=== PATIENT | male | born 2000 | race Two or more races ===

== ENCOUNTER 2020-06-22 15:26 | Emergency (ER) | payer MEDICAID, OTHER ==
--- NOTE | 2020-06-22 16:06 | EDM.PDOC ---
ED HPI GENERAL MEDICAL PROBLEM - General Chief Complaint: Allergic Reaction Stated Complaint: ALLERGIC REACTION Time Seen by Provider: 06/22/20 15:40 Source of Information: Reports: Patient History Limitations: Reports: No Limitations - History of Present Illness INITIAL COMMENTS - FREE TEXT/NARRATIVE: 19-year-old male with no past medical history presenting with insect bites. States he was outdoors and was bitten by numerous mosquitoes over the past 24 hours. Presents to the ED complaining of multiple itchy, raised, erythematous areas to both forearms, neck, and the anterior chest. Took 1 dose of Benadryl prior to arrival without relief. Denies any history of anaphylaxis, has never used an EpiPen, no wheezing, shortness of breath, throat swelling, or facial swelling. Arms Pain Score (Numeric/FACES): 6 - Related Data Allergies Allergy/AdvReac Type Severity Reaction Status Date / Time No Known Allergies Allergy Verified 06/22/20 15:50 Home Meds: Home Meds . [No Known Home Meds] 06/22/20 [History] Past Medical History - Past Health History Medical/Surgical History: Denies Medical/Surgical History - Infectious Disease History Infectious Disease History: Reports: None Social & Family History - Family History Family Medical History: Noncontributory - Tobacco Use Smoking Status *Q: Never Smoker ED ROS ALLERGIC REACTION - Review of Systems Review Of Systems: See Below Constitutional: Denies: Fever, Chills HEENT: Denies: Throat Pain, Throat Swelling Respiratory: Denies: Shortness of Breath, Wheezing, Cough GI/Abdominal: Denies: Abdominal Pain, Nausea, Vomiting Skin: Reports: Pruritis, Lesions. Denies: Rash ED EXAM GENERAL NO PERIP PULSE - Physical Exam Exam: See Below Text/Narrative:: Vital signs reviewed. Nursing notes reviewed. Constitutional: Awake, alert, non-distressed. Head: Normocephalic, atraumatic. Eyes: EOMI, conjunctiva normal, no discharge, no scleral icterus. Ears, Nose, Throat: External ears and nose normal, moist oral mucosa. No intraoral swelling Cardiovascular: 2+ radial pulse, capillary refill less than 2 seconds. Pulmonary: normal work of breathing, no accessory muscle use. CTA BL Abdomen/GI: Soft, nontender, nondistended, no guarding or rigidity, no masses. Musculoskeletal: No deformities. Integumentary: Appropriate color for ethnicity, warm, dry, no pallor or jaundice, no rash. Numerous erythematous, raised lesions consistent with insect bites. Neurologic: Alert, answering questions appropriately, normal speech, no facial droop, moving all extremities well. Psychiatric: Appropriate mood and affect, normal thought process. Course - Vital Signs Text/Narrative:: Presentation consistent with insect bites, appear benign. No evidence of systemic involvement/anaphylaxis. Stable to discharge home. Discussed [id number] oral diphenhydramine, diphenhydramine cream, calamine lotion. Primary care follow-up. Last Recorded V/S: Last Vital Signs Temp 36.1 C 06/22/20 15:50 Pulse 66 06/22/20 15:50 Resp 16 06/22/20 15:50 BP 134/70 06/22/20 15:50 Pulse Ox 98 06/22/20 15:50 Departure - Departure Time of Disposition: 16:04 Disposition: Home, Self-Care 01 Condition: Good Clinical Impression: Insect bites Qualifiers: Encounter type: initial encounter Site of insect bite: forearm Laterality: unspecified laterality Qualified Code(s): S50.869A - Insect bite (nonvenomous) of unspecified forearm, initial encounter - Discharge Information *PRESCRIPTION DRUG MONITORING PROGRAM REVIEWED*: Not Applicable *COPY OF PRESCRIPTION DRUG MONITORING REPORT IN PATIENT VANESA: Not Applicable Instructions: Insect Bite, Adult, [id number] Referrals: [facility] - Family Practice [Provider Group] - 1 Week (As needed) Forms: ED Summary Discharge Additional Instructions: Thank you for choosing the [facility] emergency department in [place] for your medical needs today. It was a pleasure caring for you. You were seen in the emergency department for insect bites. At this point they do not appear dangerous. You can try meln-mox-mltylpt oral Benadryl every 6 hours. I also recommend suro-lmi-fswgrvu Benadryl cream and calamine lotion. Follow-up with the primary medical clinic in the next few days if you are not doing better. Please return the emergency department immediately if your symptoms worsen or if you feel worse. The following information is given to patients seen in the emergency department who are being discharged. This information is to outline your options for follow-up care. We provide all patients seen in our emergency department with a follow-up referral. The need for follow-up, as well as the timing and circumstances, are variable depending upon the specifics of your emergency department visit. If you don't have a primary care physician on staff, we will provide you with a referral. We always advise you to contact your personal physician following an emergency department visit to inform them of the circumstance of the visit and for follow-up with them and/or the need for any referrals to a consulting specialist. The emergency department will also refer you to a specialist when appropriate. This referral assures that you have the opportunity for follow-up care with a specialist. All of these measure are taken in an effort to provide you with optimal care, which includes your follow-up. Under all circumstances we always encourage you to contact your private physician who remains a resource for coordinating your care. When calling for follow-up care, please make the office aware that this follow-up is from your recent emergency room visit. If for any reason you are refused follow-up, please contact the [facility] Emergency Department at and asked to speak to the emergency department charge nurse. If you do not have a primary care physician that is caring for you, you can contact these clinics below to set up an appointment to establish care: [facility] - Primary [facility] [address] [place] [id number] [facility] [address] [place] [address] Sepsis Event Note (ED) - Evaluation Sepsis Screening Result: No Definite Risk - Focused Exam Vital Signs: Vital Signs Temp Pulse Resp BP Pulse Ox 06/22/20 15:50 36.1 C 66 16 134/70 98
== END 2020-06-22 16:13 | disposition home or self-care (01) ==
LOC: MW.ED 15:26
DX: S50.862A Insect bite (nonvenomous) of left forearm, initial encounter (principal); S50.861A Insect bite (nonvenomous) of right forearm, initial encounter; W57.XXXA Bitten or stung by nonvenomous insect and other nonvenomous arthropods, initial encounter
CPT/HCPCS: 99281; 99282